=== PATIENT | male | born 1960 | race African-American/Black ===

== ENCOUNTER 2020-04-24 12:34 | Inpatient (IN) | payer MEDICAID, OTHER ==
[~2020-04-24] VITALS: Ht 182.9 cm; Wt 100.2 kg
[2020-04-24] MEDS ORDERED: QUET100T PO (14:59)
[2020-04-24] MEDS ORDERED: SERT50TA12 PO (14:59)
[2020-04-24] MEDS ORDERED: LORazepam 2 MG/ML VIAL ONE (15:12)
[2020-04-24] MEDS ORDERED: DiphenhydrAMINE HCL 50 MG/ML VIAL ONE (15:12)
[2020-04-24] MEDS ORDERED: HALOPERIDOL LACTATE 5 MG/ML VIAL ONE (15:13)
[2020-04-24] MEDS ORDERED: DiphenhydrAMINE HCL 50 MG/ML VIAL IM ONE (15:15)
[2020-04-24] MEDS ORDERED: HALOPERIDOL LACTATE 5 MG/ML VIAL IM ONE (15:15)
[2020-04-24] MEDS ORDERED: LORazepam 2 MG/ML VIAL IM ONE (15:15)
[2020-04-24] MEDS ORDERED: LORazepam 2 MG TABLET ONE (15:17)
[2020-04-24] MEDS ORDERED: DiphenhydrAMINE HCL 50 MG CAPSULE ONE (15:17)
[2020-04-24] MEDS ORDERED: HALOPERIDOL 5 MG TABLET ONE (15:17)
[2020-04-24] MEDS ORDERED: LORazepam 2 MG TABLET PO ONE (15:30)
[2020-04-24] MEDS ORDERED: DiphenhydrAMINE HCL 50 MG CAPSULE PO ONE (15:30)
[2020-04-24] MEDS ORDERED: HALOPERIDOL 5 MG TABLET PO ONE (15:30)
[2020-04-24 16:02] LABS: AMPHET/METH SCREEN,URINE POSITIVE (NEGATIVE); BARBITURATE SCREEN, URINE NEGATIVE (NEGATIVE); BENZODIAZEPINES SCREEN,URINE NEGATIVE (NEGATIVE); CANNABINOID SCREEN,URINE POSITIVE (NEGATIVE); COCAINE SCREEN,URINE NEGATIVE (NEGATIVE); METHADONE SCREEN, URINE NEGATIVE (NEGATIVE); OPIATE SCREEN,URINE NEGATIVE (NEGATIVE)
[2020-04-24 16:03] LABS: COVID AG,FIA SOURCE NASOPHARYNGEAL
[2020-04-24 16:12] LABS: PHENCYCLIDINE SCREEN,URINE NEGATIVE (NEGATIVE)
[2020-04-24] MEDS ORDERED: HALOPERIDOL 5 MG TABLET PO PRN (16:45)
[2020-04-24] MEDS ORDERED: ZOLPIDEM TARTRATE 10 MG TABLET PO PRN (16:45)
[2020-04-24 16:47] LABS: BASOPHILS % (AUTO) 0.7 % (0.0-2.0); EOSINOPHILS % (AUTO) 5.1 % (1.0-6.0); HEMATOCRIT 41.1 % (41-53); HEMOGLOBIN 13.9 g/dL (13.5-17.5); LYMPHOCYTES # (AUTO) 1.2 K/uL (1.0-4.8); MEAN CORPUSCULAR HEMOGLOBIN 29.4 pg (26.0-34.0); MEAN CORPUSCULAR HGB CONC 33.8 G/dL (31.0-37.0); MEAN CORPUSCULAR VOLUME 87 fL (80-100); MONOCYTES # (AUTO) 0.6 K/uL (0.1-1.0); MONOCYTES % (AUTO) 8.3 % (2.0-9.0); NEUTROPHILS # (AUTO) 4.7 K/uL (1.8-7.7); NEUTROPHILS % (AUTO) 67.9 % (40.0-70.0); PLATELET COUNT (AUTO) 228 K/uL (150-450); RED BLOOD CELL COUNT(AUTO) 4.72 MIL/uL (4.50-5.90); RED CELL DISTRIBUTION WIDTH 14.9 % (11.5-14.5)
[2020-04-24 17:04] LABS: ANION GAP 6 mmol/L (8-16); CALCIUM, TOTAL 8.5 mg/dL (8.8-10.5); CARBON DIOXIDE 28 mmol/L (22-29); CHLORIDE 108 mmol/L (98-107); CREATININE 1.22 mg/dL (0.60-1.30); GLOMERULAR FILTR. RATE CALC > 60 mL/min (>60); GLUCOSE,RANDOM 83 mg/dL (70-110); POTASSIUM 3.8 mmol/L (3.5-5.1); SODIUM SERUM 142 mmol/L (136-145); UREA NITROGEN, BLOOD 9 mg/dL (7-18)
[2020-04-24 17:05] LABS: ALANINE AMINOTRANSFERASE 23 U/L (12-78); ALBUMIN 3.7 g/dL (3.4-5.0); ALKALINE PHOSPHATASE 65 U/L (46-116); ASPARTATE AMINOTRANSFERASE 24 U/L (15-37); BILIRUBIN,TOTAL 0.5 mg/dL (0.1-1.0); TOTAL PROTEIN, SERUM 7.7 g/dL (6.4-8.2)
[2020-04-24] MEDS ORDERED: IBUPROFEN 400 MG TABLET PO PRN (17:15)
[2020-04-24] MEDS ORDERED: CloNIDine HCL 0.1 MG TABLET PO PRN (17:15)
[2020-04-24] MEDS ORDERED: DOCUSATE SODIUM 100 MG CAPSULE PO PRN (17:15)
[2020-04-24] MEDS ORDERED: LOPERAMIDE HCL 2 MG CAPSULE PO PRN (17:15)
[2020-04-24] MEDS ORDERED: NICOTINE 14 MG/24 HOUR PATCH TD PRN (17:15)
[2020-04-24] MEDS ORDERED: ALBUTEROL SULFATE HFA 90 MCG/PUFF 8 GM INHALER IH PRN (17:15)
[2020-04-24] MEDS ORDERED: GuaiFENesin/D-METHORPHAN [SUGAR-FREE] 200-20MG/10 ML SYRUP UDCUP PO PRN (17:15)
[2020-04-24] MEDS ORDERED: PETROLATUM,WHITE 28 GM JELLY TP PRN (17:15)
[2020-04-24] MEDS ORDERED: ACETAMINOPHEN 325 MG TABLET PO PRN (17:15)
[2020-04-24] MEDS ORDERED: MAG HYDROX/AL HYDROX/SIMETH ES 30 ML SUSPENSION UDCUP PO PRN (17:15)
[2020-04-24] MEDS ORDERED: MAGNESIUM HYDROXIDE SUSPENSION 30 ML UDCUP PO PRN (17:15)
[2020-04-24] MEDS ORDERED: ONDANSETRON HCL 4 MG TABLET PO PRN (17:15)
[2020-04-24 18:18] VITALS: BP 141/89
[2020-04-25 04:06] VITALS: BP 138/78
[2020-04-25 04:36] VITALS: BP 136/76
[2020-04-25] MEDS: LORazepam 2 MG TABLET PO PRN ×2 (08:00→19:35)
[2020-04-25] MEDS: TERBINAFINE HCL 1% 30 GM CREAM TP SCH ×2 (08:04→17:00)
[2020-04-25 09:03] VITALS: BP 113/66
[2020-04-25] MEDS ORDERED: IBUPROFEN 800 MG TABLET PO PRN (11:00)
[2020-04-25] MEDS: OLANZapine 5 MG TABLET PO SCH (17:00)
[2020-04-26 06:27] VITALS: BP 132/74
[2020-04-26 07:37] LABS: CHOL/HDL RATIO 3.5 (4.2-7.3)
[2020-04-26 08:08] VITALS: BP 107/68
[2020-04-26] MEDS: OLANZapine 5 MG TABLET PO SCH ×2 (08:27→16:10)
[2020-04-26] MEDS: TERBINAFINE HCL 1% 30 GM CREAM TP SCH ×2 (08:28→16:10)
[2020-04-26] MEDS: LORazepam 2 MG TABLET PO PRN (16:10)
[2020-04-26 16:36] VITALS: BP 124/80
[2020-04-27 04:40] VITALS: BP 119/76
[2020-04-27 08:07] VITALS: BP 133/79
[2020-04-27] MEDS: OLANZapine 5 MG TABLET PO SCH ×3 (08:35→16:31)
[2020-04-27] MEDS: LORazepam 2 MG TABLET PO PRN (08:35)
[2020-04-27] MEDS: TERBINAFINE HCL 1% 30 GM CREAM TP SCH ×2 (08:35→16:31)
[2020-04-27] MEDS ORDERED: HYDROCORTISONE 25 MG RECTAL SUPPOSITORY PR PRN (13:30)
== END 2020-04-27 16:50 | disposition left against medical advice (07) | DRG 750 ==
LOC: EMS 12:35 → B3A 15:53
PROVIDERS: ADMIT Psychiatry & Neurology Child & Adolescent Psychiatry; ATTEND Psychiatry & Neurology Child & Adolescent Psychiatry
DX: F25.1 Schizoaffective disorder, depressive type (principal); Z59.0 Homelessness; R45.851 Suicidal ideations; F41.9 Anxiety disorder, unspecified; F12.90 Cannabis use, unspecified, uncomplicated; F10.10 Alcohol abuse, uncomplicated; Y90.9 Presence of alcohol in blood, level not specified; F19.10 Other psychoactive substance abuse, uncomplicated; E83.51 Hypocalcemia; F17.210 Nicotine dependence, cigarettes, uncomplicated; F15.10 Other stimulant abuse, uncomplicated; Z20.828 Contact with and (suspected) exposure to other viral communicable diseases
CPT/HCPCS: 87426; 99291; G0480; J1200; J1630; J2060

== ENCOUNTER 2023-05-19 19:06 | Inpatient (IN) | payer MEDICAID ==
[~2023-05-19] VITALS: Ht 182.9 cm; Wt 92.2 kg
[~2023-05-19 19:06] MED LIST: QUET100T PO; SERT-158 PO
[2023-05-19] MEDS ORDERED: ZOLPIDEM TARTRATE 10 MG TABLET PO PRN (20:15)
[2023-05-19 20:31] LABS: GLUCOMETER DEV NAME(LOC) POC.BV; POC SARS-COV2 AG, FIA NEGATIVE (NEGATIVE)
[2023-05-19 21:35] VITALS: BP 136/84; PULSE 84; RESP 18; TEMP 97.3; O2SAT 97
[2023-05-20 08:29] LABS: BASOPHILS % (AUTO) 1.3 % (0.0-2.0); HEMATOCRIT 37.7 % (41-53); HEMOGLOBIN 12.7 g/dL (13.5-17.5); LYMPHOCYTES # (AUTO) 0.7 K/uL (1.0-4.8); LYMPHOCYTES % (AUTO) 15.9 % (22.0-44.0); MEAN CORPUSCULAR HEMOGLOBIN 29.2 pg (26.0-34.0); MEAN CORPUSCULAR HGB CONC 33.7 G/dL (31.0-37.0); MEAN CORPUSCULAR VOLUME 87 fL (80-100); MONOCYTES # (AUTO) 0.4 K/uL (0.1-1.0); MONOCYTES % (AUTO) 9.2 % (2.0-9.0); NEUTROPHILS # (AUTO) 2.9 K/uL (1.8-7.7); NEUTROPHILS % (AUTO) 64.6 % (40.0-70.0); PLATELET COUNT (AUTO) 187 K/uL (150-450); RED BLOOD CELL COUNT(AUTO) 4.35 MIL/uL (4.50-5.90); RED CELL DISTRIBUTION WIDTH 19.3 % (11.5-14.5); WHITE BLOOD COUNT (AUTO) 4.6 K/uL (4.5-11.0)
[2023-05-20 08:41] LABS: HEMOGLOBIN A1C 5.7 % (3.8-5.6)
[2023-05-20 08:57] LABS: ALANINE AMINOTRANSFERASE 18 U/L (12-78); ALBUMIN 3.5 g/dL (3.4-5.0); ALKALINE PHOSPHATASE 63 U/L (46-116); ANION GAP 9 mmol/L (8-16); ASPARTATE AMINOTRANSFERASE 19 U/L (15-37); BILIRUBIN,TOTAL 0.4 mg/dL (0.1-1.0); CALCIUM, TOTAL 8.8 mg/dL (8.8-10.5); CARBON DIOXIDE 26 mmol/L (22-29); CHLORIDE 110 mmol/L (98-107); CHOL/HDL RATIO 2.5 (4.2-7.3); CHOLESTEROL 158 mg/dL (131-200); FREE T4 (FREE THYROXINE) 0.95 ng/dL (0.76-1.46); GLOMERULAR FILTR. RATE CALC > 60 mL/min (>60); GLUCOSE,RANDOM 86 mg/dL (70-110); HDL CHOLESTEROL 63 mg/dL (40-60); LDL CHOL (CALC.) 83 mg/dL (0-130); POTASSIUM 4.3 mmol/L (3.5-5.1); SODIUM SERUM 145 mmol/L (136-145); THYROID STIMULATING HORMONE 1.22 uIU/mL (0.36-3.74); TOTAL PROTEIN, SERUM 7.3 g/dL (6.4-8.2); TRIGLYCERIDES 62 mg/dL (15-150); UREA NITROGEN, BLOOD 14 mg/dL (7-18)
[2023-05-20 09:21] LABS: RBC MORPHOLOGY COMMENT DIMORPHIC RBC
[2023-05-20] MEDS ORDERED: INFLUENZA VIRUS VACCINE QVS 2023-24 (6MO+)/PF 60 MCG/0.5 ML SYRINGE IM. ONE (14:15)
[2023-05-20 22:20] VITALS: BP 131/81; PULSE 82; RESP 18; TEMP 97.6; O2SAT 97
[2023-05-21] MEDS: LORazepam 2 MG TABLET PO PRN ×2 (00:33→19:50)
[2023-05-21] MEDS: HALOPERIDOL 5 MG TABLET PO PRN ×2 (00:33→19:50)
[2023-05-21 09:54] VITALS: BP 122/75; PULSE 87; RESP 18; TEMP 97; O2SAT 100
[2023-05-21] MEDS: SERTRALINE HCL 50 MG TABLET PO SCH (12:24)
[2023-05-21 20:45] VITALS: PULSE 77; RESP 18; TEMP 96.8; O2SAT 98
[2023-05-21] MEDS ORDERED: DOCUSATE SODIUM 100 MG CAPSULE PO PRN (21:30)
[2023-05-21] MEDS ORDERED: ALBUTEROL SULFATE HFA 90 MCG/PUFF 8 GM INHALER IH PRN (21:30)
[2023-05-21] MEDS ORDERED: CloNIDine HCL 0.1 MG TABLET PO PRN (21:30)
[2023-05-21] MEDS ORDERED: ONDANSETRON HCL 4 MG TABLET PO PRN (21:30)
[2023-05-21] MEDS ORDERED: MAG HYDROX/ALUMINUM HYD/SIMETH ES 30 ML SUSPENSION UDCUP PO PRN (21:30)
[2023-05-21] MEDS ORDERED: GuaiFENesin/D-METHORPHAN [SUGAR-FREE] 200-20MG/10 ML SYRUP UDCUP PO PRN (21:30)
[2023-05-21] MEDS ORDERED: MAGNESIUM HYDROXIDE SUSPENSION 30 ML UDCUP PO PRN (21:30)
[2023-05-21] MEDS ORDERED: PETROLATUM,WHITE 28 GM JELLY TP PRN (21:30)
[2023-05-21] MEDS ORDERED: NICOTINE 14 MG/24 HOUR PATCH TD PRN (21:30)
[2023-05-21] MEDS ORDERED: LOPERAMIDE HCL 2 MG CAPSULE PO PRN (21:30)
[2023-05-21] MEDS: QUEtiapine FUMARATE 100 MG TABLET PO SCH (21:31)
[2023-05-21] MEDS: ACETAMINOPHEN 325 MG TABLET PO PRN (22:06)
[2023-05-22 08:03] LABS: EOSINOPHILS % (AUTO) 9.2 % (1.0-6.0); HEMATOCRIT 36.4 % (41-53); HEMOGLOBIN 12.2 g/dL (13.5-17.5); LYMPHOCYTES % (AUTO) 21.8 % (22.0-44.0); MEAN CORPUSCULAR HEMOGLOBIN 29.3 pg (26.0-34.0); MEAN CORPUSCULAR HGB CONC 33.7 G/dL (31.0-37.0); MEAN CORPUSCULAR VOLUME 87 fL (80-100); MONOCYTES # (AUTO) 0.6 K/uL (0.1-1.0); NEUTROPHILS # (AUTO) 2.6 K/uL (1.8-7.7); PLATELET COUNT (AUTO) 178 K/uL (150-450); RED BLOOD CELL COUNT(AUTO) 4.18 MIL/uL (4.50-5.90); RED CELL DISTRIBUTION WIDTH 20.7 % (11.5-14.5); WHITE BLOOD COUNT (AUTO) 4.6 K/uL (4.5-11.0)
[2023-05-22 08:22] LABS: ALANINE AMINOTRANSFERASE 19 U/L (12-78); ALBUMIN 3.3 g/dL (3.4-5.0); ALKALINE PHOSPHATASE 61 U/L (46-116); ANION GAP 9 mmol/L (8-16); ASPARTATE AMINOTRANSFERASE 23 U/L (15-37); BILIRUBIN,TOTAL 0.4 mg/dL (0.1-1.0); CALCIUM, TOTAL 8.7 mg/dL (8.8-10.5); CARBON DIOXIDE 26 mmol/L (22-29); CHLORIDE 110 mmol/L (98-107); CREATININE 1.02 mg/dL (0.60-1.30); GLOMERULAR FILTR. RATE CALC > 60 mL/min (>60); GLUCOSE,RANDOM 89 mg/dL (70-110); POTASSIUM 4.2 mmol/L (3.5-5.1); SODIUM SERUM 145 mmol/L (136-145); THYROID STIMULATING HORMONE 1.76 uIU/mL (0.36-3.74); UREA NITROGEN, BLOOD 16 mg/dL (7-18)
[2023-05-22 08:26] LABS: HEMOGLOBIN A1C 5.7 % (3.8-5.6)
[2023-05-22 09:13] LABS: CHOL/HDL RATIO 2.6 (4.2-7.3); CHOLESTEROL 171 mg/dL (131-200); HDL CHOLESTEROL 65 mg/dL (40-60); LDL CHOL (CALC.) 93 mg/dL (0-130); TRIGLYCERIDES 65 mg/dL (15-150)
[2023-05-22] MEDS: SERTRALINE HCL 50 MG TABLET PO SCH (09:14)
[2023-05-22] MEDS: HALOPERIDOL 5 MG TABLET PO PRN (13:44)
[2023-05-22] MEDS: LORazepam 2 MG TABLET PO PRN (13:44)
[2023-05-22 13:51] VITALS: BP 138/82; PULSE 85; RESP 18; TEMP 97.2; O2SAT 99
[2023-05-22] MEDS: CLOTRIMAZOLE 1% 15 GM CREAM TP SCH (16:06)
[2023-05-22 17:07] VITALS: BP 137/76; PULSE 78; RESP 18; TEMP 98.7
[2023-05-22] MEDS: IBUPROFEN 400 MG TABLET PO PRN (17:07)
[2023-05-22 18:29] VITALS: BP 132/75; PULSE 76; RESP 18; TEMP 97.6; O2SAT 0
[2023-05-22 20:50] VITALS: BP 124/81; PULSE 74; RESP 18; TEMP 97.6; O2SAT 98
[2023-05-22] MEDS: QUEtiapine FUMARATE 100 MG TABLET PO SCH (20:56)
[2023-05-22] MEDS: ACETAMINOPHEN 325 MG TABLET PO PRN (20:56)
[2023-05-22 21:50] VITALS: RESP 18
[2023-05-22 21:55] VITALS: BP 124/81; PULSE 77; RESP 18; TEMP 97.6; O2SAT 98
[2023-05-23] MEDS: SERTRALINE HCL 50 MG TABLET PO SCH (08:24)
[2023-05-23 08:25] VITALS: RESP 18
[2023-05-23] MEDS: CLOTRIMAZOLE 1% 15 GM CREAM TP SCH ×2 (08:25→16:24)
[2023-05-23] MEDS: NYSTATIN 15 GM POWDER BOTTLE TP SCH (08:26)
[2023-05-23] MEDS: IBUPROFEN 400 MG TABLET PO PRN (08:27)
[2023-05-23] MEDS ORDERED: BACITRACIN 28 GM OINTMENT TP SCH (09:00)
[2023-05-23 09:27] VITALS: RESP 16
[2023-05-23 10:42] VITALS: BP 129/76; PULSE 84; RESP 18; TEMP 97.1; O2SAT 99
[2023-05-23] MEDS: QUEtiapine FUMARATE 100 MG TABLET PO SCH ×2 (20:54→21:00)
[2023-05-23 21:32] VITALS: BP 139/83; PULSE 68; RESP 18; TEMP 97.4; O2SAT 97
[2023-05-24] MEDS: CLOTRIMAZOLE 1% 15 GM CREAM TP SCH (09:38)
[2023-05-24] MEDS: SERTRALINE HCL 50 MG TABLET PO SCH (09:38)
[2023-05-24] MEDS: NYSTATIN 15 GM POWDER BOTTLE TP SCH (09:39)
[2023-05-24 10:55] VITALS: BP 142/79; PULSE 82; RESP 18; TEMP 97.3; O2SAT 100
[2023-05-24] MEDS ORDERED: NYST30CR9 TP (12:22)
[2023-05-24] MEDS ORDERED: CLOT15CR29 TP (12:22)
[2023-05-24] MEDS ORDERED: QUET50TA PO (13:40)
[2023-05-24] MEDS ORDERED: SERT-158 PO (13:40)
[2023-05-25] MEDS ORDERED: CAPECITABINE 500MG TABLET PO SCH (09:00)
== END 2023-05-24 16:42 | disposition home or self-care (01) | DRG 750 ==
LOC: B2S 20:22 → UNDOADMIN 20:22 → 3EI 05-20 11:00
PROVIDERS: ADMIT Psychiatry & Neurology Psychiatry; ATTEND Psychiatry & Neurology Psychiatry
PROC: GZHZZZZ Group Psychotherapy (ICD-10-PCS; principal; 2023-05-21)
PROC: GZ56ZZZ Individual Psychotherapy, Supportive (ICD-10-PCS; 2023-05-21)
DX: F25.1 Schizoaffective disorder, depressive type (principal); R45.851 Suicidal ideations; C18.9 Malignant neoplasm of colon, unspecified; F03.918 Unspecified dementia, unspecified severity, with other behavioral disturbance; G47.00 Insomnia, unspecified; D64.9 Anemia, unspecified; Z20.822 Contact with and (suspected) exposure to COVID-19; Z79.899 Other long term (current) drug therapy; Z85.038 Personal history of other malignant neoplasm of large intestine; Z91.51 Personal history of suicidal behavior; Z93.3 Colostomy status
CPT/HCPCS: 70450; 80053; 80061; 83036; 84439; 84443; 85025

== ENCOUNTER 2023-05-19 22:41 | Emergency (ER) | payer MEDICAID, OTHER ==
[~2023-05-19] VITALS: Ht 182.9 cm; Wt 90.9 kg
[2023-05-19 23:35] VITALS: BP 163/87; PULSE 70; RESP 15; TEMP 97.6
[2023-05-19 23:59] LABS: PH,URINE DRUG SCREEN 5.5 (5.0-8.0)
[2023-05-20] LABS: BASOPHILS % (AUTO) 1.1 % (0.0-2.0); EOSINOPHILS % (AUTO) 7.1 % (1.0-6.0); HEMATOCRIT 36.5 % (41-53); HEMOGLOBIN 12.3 g/dL (13.5-17.5); LYMPHOCYTES # (AUTO) 1.2 K/uL (1.0-4.8); LYMPHOCYTES % (AUTO) 22.4 % (22.0-44.0); MEAN CORPUSCULAR HEMOGLOBIN 29.2 pg (26.0-34.0); MEAN CORPUSCULAR HGB CONC 33.7 G/dL (31.0-37.0); MEAN CORPUSCULAR VOLUME 87 fL (80-100); MONOCYTES # (AUTO) 0.6 K/uL (0.1-1.0); MONOCYTES % (AUTO) 11.1 % (2.0-9.0); NEUTROPHILS # (AUTO) 3.1 K/uL (1.8-7.7); NEUTROPHILS % (AUTO) 58.3 % (40.0-70.0); PLATELET COUNT (AUTO) 197 K/uL (150-450); RED BLOOD CELL COUNT(AUTO) 4.21 MIL/uL (4.50-5.90); RED CELL DISTRIBUTION WIDTH 18.7 % (11.5-14.5); WHITE BLOOD COUNT (AUTO) 5.3 K/uL (4.5-11.0)
[2023-05-20 00:01] LABS: ALCOHOL, URINE DRUG SCREEN NEGATIVE (NEGATIVE); AMPHET/METH SCREEN,URINE NEGATIVE (NEGATIVE); BARBITURATE SCREEN, URINE NEGATIVE (NEGATIVE); BENZODIAZEPINES SCREEN,URINE NEGATIVE (NEGATIVE); CANNABINOID SCREEN,URINE POSITIVE (NEGATIVE); COCAINE SCREEN,URINE NEGATIVE (NEGATIVE); METHADONE SCREEN, URINE NEGATIVE (NEGATIVE); OPIATE SCREEN,URINE NEGATIVE (NEGATIVE); PHENCYCLIDINE SCREEN,URINE NEGATIVE (NEGATIVE)
[2023-05-20 00:10] LABS: CARBON DIOXIDE 27 mmol/L (22-29); CHLORIDE 109 mmol/L (98-107); SODIUM SERUM 146 mmol/L (136-145)
[2023-05-20 00:11] LABS: ANION GAP 10 mmol/L (8-16); CALCIUM, TOTAL 8.9 mg/dL (8.8-10.5); CREATININE 0.97 mg/dL (0.60-1.30); GLOMERULAR FILTR. RATE CALC > 60 mL/min (>60); GLUCOSE,RANDOM 102 mg/dL (70-110); UREA NITROGEN, BLOOD 16 mg/dL (7-18)
[2023-05-20 00:14] LABS: ALANINE AMINOTRANSFERASE 21 U/L (12-78); ALBUMIN 3.6 g/dL (3.4-5.0); ALKALINE PHOSPHATASE 62 U/L (46-116); ASPARTATE AMINOTRANSFERASE 21 U/L (15-37); BILIRUBIN,TOTAL 0.4 mg/dL (0.1-1.0); TOTAL PROTEIN, SERUM 7.4 g/dL (6.4-8.2)
[2023-05-20 00:20] LABS: ALCOHOL, BLOOD (SERUM) < 3 mg/dL (0-10)
[2023-05-20] MEDS ORDERED: LORazepam 2 MG TABLET PO ONE (04:30)
[2023-05-20] MEDS ORDERED: HALOPERIDOL 5 MG TABLET PO ONE (04:30)
[2023-05-20] MEDS: DiphenhydrAMINE HCL 50 MG/ML VIAL IM ONE (05:25)
[2023-05-20] MEDS: LORazepam 2 MG/ML VIAL IM ONE (05:25)
[2023-05-20] MEDS: HALOPERIDOL LACTATE 5 MG/ML VIAL IM ONE (05:25)
== END 2023-05-20 11:04 | disposition admitted as inpatient to this hospital (09) ==
LOC: EMS 22:53
DX: F25.1 Schizoaffective disorder, depressive type (principal); F12.90 Cannabis use, unspecified, uncomplicated
CPT/HCPCS: 99285; 80053; 85025; 36415; 80307; G0480

== ENCOUNTER 2023-07-08 12:47 | Inpatient (IN) | payer MEDICAID, OTHER ==
[~2023-07-08] VITALS: Ht 182.9 cm; Wt 98.1 kg
[~2023-07-08 12:47] MED LIST changes: +CLOT15CR29 TP; +NYST30CR9 TP; +QUET50TA PO
[2023-07-08 13:28] LABS: BASOPHILS % (AUTO) 0.7 % (0.0-2.0); EOSINOPHILS % (AUTO) 2.5 % (1.0-6.0); HEMATOCRIT 39.6 % (41-53); HEMOGLOBIN 13.6 g/dL (13.5-17.5); LYMPHOCYTES # (AUTO) 0.7 K/uL (1.0-4.8); LYMPHOCYTES % (AUTO) 8.8 % (22.0-44.0); MEAN CORPUSCULAR HEMOGLOBIN 31.1 pg (26.0-34.0); MEAN CORPUSCULAR HGB CONC 34.2 G/dL (31.0-37.0); MEAN CORPUSCULAR VOLUME 91 fL (80-100); MONOCYTES # (AUTO) 0.7 K/uL (0.1-1.0); MONOCYTES % (AUTO) 8.2 % (2.0-9.0); NEUTROPHILS # (AUTO) 6.7 K/uL (1.8-7.7); NEUTROPHILS % (AUTO) 79.8 % (40.0-70.0); PLATELET COUNT (AUTO) 236 K/uL (150-450); RED BLOOD CELL COUNT(AUTO) 4.36 MIL/uL (4.50-5.90); RED CELL DISTRIBUTION WIDTH 19.8 % (11.5-14.5); WHITE BLOOD COUNT (AUTO) 8.4 K/uL (4.5-11.0)
[2023-07-08 13:41] LABS: ANION GAP 12 mmol/L (8-16); CALCIUM, TOTAL 9.5 mg/dL (8.8-10.5); CARBON DIOXIDE 25 mmol/L (22-29); CHLORIDE 105 mmol/L (98-107); CREATININE 1.04 mg/dL (0.60-1.30); GLOMERULAR FILTR. RATE CALC > 60 mL/min (>60); GLUCOSE,RANDOM 92 mg/dL (70-110); SODIUM SERUM 142 mmol/L (136-145); UREA NITROGEN, BLOOD 21 mg/dL (7-18)
[2023-07-08 13:45] LABS: ALCOHOL, BLOOD (SERUM) < 3 mg/dL (0-10)
[2023-07-08 13:46] LABS: ALANINE AMINOTRANSFERASE 35 U/L (12-78); ALBUMIN 4.2 g/dL (3.4-5.0); ALKALINE PHOSPHATASE 72 U/L (46-116); ASPARTATE AMINOTRANSFERASE 34 U/L (15-37); BILIRUBIN,TOTAL 0.7 mg/dL (0.1-1.0); TOTAL PROTEIN, SERUM 8.1 g/dL (6.4-8.2)
[2023-07-08 14:06] LABS: COVID AG,FIA SOURCE NASAL SWAB
[2023-07-08 14:32] LABS: SARS-COV2 (COVID) ANTIGEN,FIA Negative (Negative)
[2023-07-08] MEDS: QUEtiapine FUMARATE 100 MG TABLET PO ONE (17:32)
[2023-07-08] MEDS: DiphenhydrAMINE HCL 25 MG CAPSULE PO ONE (17:33)
[2023-07-08] MEDS: LORazepam 2 MG TABLET PO ONE (17:33)
[2023-07-08] MEDS: TERBINAFINE HCL 1% 30 GM CREAM TP ONE (17:34)
[2023-07-08 18:47] VITALS: BP 157/98; PULSE 80; RESP 18; TEMP 97.7
[2023-07-08] MEDS ORDERED: PNEUMOCOCCAL VACCINE POLYVALENT 0.5 ML SYRINGE [PPSV23] IM. ONE (19:00)
[2023-07-08] MEDS ORDERED: INFLUENZA VIRUS VACCINE QVS 2023-24 (6MO+)/PF 60 MCG/0.5 ML SYRINGE IM. ONE (19:00)
[2023-07-08] MEDS: LORazepam 2 MG TABLET PO PRN (20:17)
[2023-07-08] MEDS: ZOLPIDEM TARTRATE 10 MG TABLET PO PRN (20:50)
[2023-07-09] MEDS ORDERED: CloNIDine HCL 0.1 MG TABLET PO PRN (05:00)
[2023-07-09] MEDS ORDERED: MAG HYDROX/ALUMINUM HYD/SIMETH ES 30 ML SUSPENSION UDCUP PO PRN (05:00)
[2023-07-09] MEDS ORDERED: DOCUSATE SODIUM 100 MG CAPSULE PO PRN (05:00)
[2023-07-09] MEDS ORDERED: OMEPRAZOLE 20 MG CAPSULE PO PRN (05:00)
[2023-07-09] MEDS ORDERED: ONDANSETRON HCL 4 MG TABLET PO PRN (05:00)
[2023-07-09] MEDS ORDERED: MAGNESIUM HYDROXIDE SUSPENSION 30 ML UDCUP PO PRN (05:00)
[2023-07-09] MEDS ORDERED: BENZOCAINE/MENTHOL LOZENGE PO PRN (05:00)
[2023-07-09] MEDS ORDERED: BACITRACIN 28 GM OINTMENT TP PRN (05:00)
[2023-07-09] MEDS ORDERED: PETROLATUM,WHITE 28 GM JELLY TP PRN (05:00)
[2023-07-09] MEDS ORDERED: LOPERAMIDE HCL 2 MG CAPSULE PO PRN (05:00)
[2023-07-09] MEDS ORDERED: ALBUTEROL SULFATE HFA 90 MCG/PUFF 8 GM INHALER IH PRN (05:00)
[2023-07-09] MEDS ORDERED: PANT-31 PO (08:13)
[2023-07-09] MEDS ORDERED: AMLO-258 PO (08:13)
[2023-07-09 08:20] VITALS: BP 134/80; PULSE 93; RESP 17; TEMP 98
[2023-07-09] MEDS ORDERED: RISP2TAB86 PO (09:00)
[2023-07-09] MEDS ORDERED: RISP4TAB73 PO (09:00)
[2023-07-09] MEDS: AmLODIPine BESYLATE 10 MG TABLET PO SCH (09:17)
[2023-07-09] MEDS: PANTOPRAZOLE SODIUM 40 MG DR TABLET PO SCH (09:17)
[2023-07-09] MEDS: HALOPERIDOL 5 MG TABLET PO PRN (20:15)
[2023-07-09 21:23] VITALS: BP 122/66; PULSE 74; RESP 18; TEMP 98.4
[2023-07-10 07:40] LABS: LITHIUM < 0.20 mmol/L (0.60-1.20)
[2023-07-10 07:41] LABS: VALPROIC ACID < 3 mcg/mL (50-100)
[2023-07-10 08:46] VITALS: BP 148/88; PULSE 76; RESP 17; TEMP 97.1
[2023-07-10] MEDS: LITHIUM CARBONATE 300 MG ER TABLET PO SCH (09:21)
[2023-07-10] MEDS: DIVALPROEX SODIUM 500 MG ER TABLET PO SCH (09:21)
[2023-07-10] MEDS: RisperiDONE 3 MG TABLET PO SCH (09:21)
[2023-07-10 10:16] LABS: PH,URINE DRUG SCREEN 5.5 (5.0-8.0)
[2023-07-10 10:22] LABS: ALCOHOL, URINE DRUG SCREEN NEGATIVE (NEGATIVE); AMPHET/METH SCREEN,URINE NEGATIVE (NEGATIVE); BARBITURATE SCREEN, URINE NEGATIVE (NEGATIVE); BENZODIAZEPINES SCREEN,URINE NEGATIVE (NEGATIVE); CANNABINOID SCREEN,URINE POSITIVE (NEGATIVE); COCAINE SCREEN,URINE NEGATIVE (NEGATIVE); METHADONE SCREEN, URINE NEGATIVE (NEGATIVE); OPIATE SCREEN,URINE NEGATIVE (NEGATIVE); PHENCYCLIDINE SCREEN,URINE NEGATIVE (NEGATIVE)
[2023-07-10] MEDS ORDERED: LORazepam 2 MG/ML VIAL ONE (20:29)
[2023-07-10] MEDS: DiphenhydrAMINE HCL 50 MG/ML VIAL IM ONE (20:40)
[2023-07-10] MEDS: LORazepam 2 MG/ML VIAL IM ONE (20:40)
[2023-07-10] MEDS: HALOPERIDOL LACTATE 5 MG/ML VIAL IM ONE (20:45)
[2023-07-10 21:04] VITALS: RESP 18
[2023-07-11] MEDS: RisperiDONE 4 MG TABLET PO SCH (16:05)
[2023-07-12 20:29] VITALS: BP 120/71; PULSE 93; RESP 18; TEMP 98.8
[2023-07-12] MEDS: IBUPROFEN 600 MG TABLET PO PRN (20:32)
[2023-07-12 21:32] VITALS: RESP 18
[2023-07-13 08:31] VITALS: BP 140/93; PULSE 86; RESP 18; TEMP 97.5
[2023-07-13] MEDS: ACETAMINOPHEN 325 MG TABLET PO PRN (15:31)
[2023-07-13] MEDS ORDERED: LITH300C3 PO (16:56)
[2023-07-13] MEDS ORDERED: RISP4TAB73 PO (16:56)
[2023-07-13] MEDS ORDERED: DIVA500T53 PO (16:56)
[2023-07-13 20:05] VITALS: BP 144/84; PULSE 85; RESP 18; TEMP 97.8
[2023-07-13 20:24] VITALS: BP 138/87; PULSE 84; RESP 18; TEMP 98
[2023-07-13 21:27] VITALS: RESP 18
[2023-07-14 03:29] VITALS: BP 142/87; PULSE 88; RESP 18; TEMP 98.4
[2023-07-14 04:32] VITALS: RESP 18
[2023-07-14 08:27] VITALS: BP 154/97; PULSE 92; RESP 18; TEMP 98.1
[2023-07-14 20:48] VITALS: RESP 18
[2023-07-15 08:45] VITALS: BP 109/66; PULSE 62; RESP 18; TEMP 98.1
[2023-07-15 19:55] VITALS: BP 142/85; PULSE 83; RESP 18; TEMP 97.9
[2023-07-15 20:55] VITALS: RESP 16
[2023-07-16 06:19] VITALS: RESP 18
[2023-07-16 07:19] VITALS: RESP 18
[2023-07-16 08:15] VITALS: RESP 18
== END 2023-07-16 08:25 | disposition home or self-care (01) | DRG 750 ==
LOC: EMS 12:47 → 3EC 17:18
PROVIDERS: ADMIT Psychiatry & Neurology Psychiatry; ATTEND Psychiatry & Neurology Psychiatry
DX: F25.1 Schizoaffective disorder, depressive type (principal); R45.851 Suicidal ideations; F03.918 Unspecified dementia, unspecified severity, with other behavioral disturbance; I10 Essential (primary) hypertension; G47.00 Insomnia, unspecified; Z20.822 Contact with and (suspected) exposure to COVID-19; K59.00 Constipation, unspecified; F03.94 Unspecified dementia, unspecified severity, with anxiety; F12.90 Cannabis use, unspecified, uncomplicated; F10.90 Alcohol use, unspecified, uncomplicated; Z93.3 Colostomy status; Z79.899 Other long term (current) drug therapy; Z85.038 Personal history of other malignant neoplasm of large intestine; Z90.49 Acquired absence of other specified parts of digestive tract
CPT/HCPCS: 80053; 80164; 80178; 80307; 85025; 99285; G0480; J1200; J1630; J2060

== ENCOUNTER 2023-10-01 11:35 | Inpatient (IN) | payer MEDICAID, OTHER ==
[~2023-10-01] VITALS: Ht 182.9 cm; Wt 94.6 kg
[~2023-10-01 11:35] MED LIST changes: +AMLO-258 PO; -CLOT15CR29 TP; +DIVA500T53 PO; +LITH300C3 PO; -NYST30CR9 TP; +PANT-31 PO; -QUET100T PO; -QUET50TA PO; +RISP4TAB94 PO; -SERT-158 PO
[2023-10-01 15:27] LABS: BASOPHILS % (AUTO) 1.1 % (0.0-2.0); EOSINOPHILS % (AUTO) 2.2 % (1.0-6.0); HEMATOCRIT 38.3 % (41-53); HEMOGLOBIN 12.8 g/dL (13.5-17.5); LYMPHOCYTES # (AUTO) 1.1 K/uL (1.0-4.8); MEAN CORPUSCULAR HEMOGLOBIN 31.2 pg (26.0-34.0); MEAN CORPUSCULAR HGB CONC 33.4 G/dL (31.0-37.0); MEAN CORPUSCULAR VOLUME 94 fL (80-100); MONOCYTES # (AUTO) 0.6 K/uL (0.1-1.0); MONOCYTES % (AUTO) 6.9 % (2.0-9.0); NEUTROPHILS # (AUTO) 7.3 K/uL (1.8-7.7); NEUTROPHILS % (AUTO) 77.8 % (40.0-70.0); PLATELET COUNT (AUTO) 349 K/uL (150-450); RED CELL DISTRIBUTION WIDTH 16.3 % (11.5-14.5); WHITE BLOOD COUNT (AUTO) 9.5 K/uL (4.5-11.0)
[2023-10-01 15:33] LABS: ANION GAP 13 mmol/L (8-16); CALCIUM, TOTAL 8.7 mg/dL (8.8-10.5); CARBON DIOXIDE 23 mmol/L (22-29); CHLORIDE 102 mmol/L (98-107); CREATININE 1.13 mg/dL (0.60-1.30); GLOMERULAR FILTR. RATE CALC > 60 mL/min (>60); GLUCOSE,RANDOM 89 mg/dL (70-110); POTASSIUM 3.5 mmol/L (3.5-5.1); SODIUM SERUM 138 mmol/L (136-145); UREA NITROGEN, BLOOD 11 mg/dL (7-18)
[2023-10-01 15:38] LABS: ALANINE AMINOTRANSFERASE 40 U/L (12-78); ALBUMIN 3.8 g/dL (3.4-5.0); ALKALINE PHOSPHATASE 69 U/L (46-116); ASPARTATE AMINOTRANSFERASE 48 U/L (15-37); BILIRUBIN,TOTAL 0.8 mg/dL (0.1-1.0); TOTAL PROTEIN, SERUM 8.4 g/dL (6.4-8.2)
[2023-10-01 15:47] LABS: LITHIUM < 0.20 mmol/L (0.60-1.20)
[2023-10-01 16:06] LABS: VALPROIC ACID < 3 mcg/mL (50-100)
[2023-10-01 16:12] LABS: ALCOHOL, BLOOD (SERUM) < 3 mg/dL (0-10)
[2023-10-01 16:18] LABS: COVID AG,FIA SOURCE NASAL SWAB
[2023-10-01 16:53] LABS: SARS-COV2 (COVID) ANTIGEN,FIA Negative (Negative)
[2023-10-01] MEDS ORDERED: ZOLPIDEM TARTRATE 10 MG TABLET PO PRN (20:00)
[2023-10-01] MEDS: LORazepam 2 MG TABLET PO PRN (21:49)
[2023-10-01] MEDS: HALOPERIDOL 5 MG TABLET PO PRN (21:50)
[2023-10-02 02:42] VITALS: BP 128/55; PULSE 67; RESP 18; TEMP 98.3
[2023-10-02] MEDS ORDERED: MAG HYDROX/ALUMINUM HYD/SIMETH ES 30 ML SUSPENSION UDCUP PO PRN ×2 (07:15→15:15)
[2023-10-02] MEDS ORDERED: DOCUSATE SODIUM 100 MG CAPSULE PO PRN ×2 (07:15→15:15)
[2023-10-02] MEDS ORDERED: GuaiFENesin/D-METHORPHAN [SUGAR-FREE] 200-20MG/10 ML SYRUP UDCUP PO PRN ×2 (07:15→15:15)
[2023-10-02] MEDS ORDERED: ALBUTEROL SULFATE HFA 90 MCG/PUFF 8 GM INHALER IH PRN ×2 (07:15→15:15)
[2023-10-02] MEDS ORDERED: ONDANSETRON HCL 4 MG TABLET PO PRN ×2 (07:15→15:15)
[2023-10-02] MEDS ORDERED: IBUPROFEN 400 MG TABLET PO PRN (07:15)
[2023-10-02] MEDS ORDERED: ACETAMINOPHEN 325 MG TABLET PO PRN ×2 (07:15→15:15)
[2023-10-02] MEDS ORDERED: CloNIDine HCL 0.1 MG TABLET PO PRN ×2 (07:15→15:15)
[2023-10-02] MEDS ORDERED: NICOTINE 14 MG/24 HOUR PATCH TD PRN ×2 (07:15→15:15)
[2023-10-02] MEDS ORDERED: MAGNESIUM HYDROXIDE SUSPENSION 30 ML UDCUP PO PRN ×2 (07:15→15:15)
[2023-10-02] MEDS ORDERED: LOPERAMIDE HCL 2 MG CAPSULE PO PRN ×2 (07:15→15:15)
[2023-10-02] MEDS ORDERED: PETROLATUM,WHITE 28 GM JELLY TP PRN ×2 (07:15→15:15)
[2023-10-02 11:01] VITALS: BP 138/94; PULSE 82; RESP 20; TEMP 98
[2023-10-02] MEDS: LITHIUM CARBONATE 300 MG CAPSULE PO SCH (11:03)
[2023-10-02] MEDS: PANTOPRAZOLE SODIUM 40 MG DR TABLET PO SCH (11:03)
[2023-10-02] MEDS: RisperiDONE 3 MG TABLET PO SCH (11:03)
[2023-10-02] MEDS: AmLODIPine BESYLATE 10 MG TABLET PO SCH (11:04)
[2023-10-02 21:16] VITALS: BP 134/77; PULSE 66; RESP 18; TEMP 98.8
[2023-10-03 05:38] VITALS: RESP 18
[2023-10-03] MEDS: IBUPROFEN 400 MG TABLET PO PRN (05:38)
[2023-10-03 06:38] VITALS: RESP 18
[2023-10-03 08:30] VITALS: BP 139/72; PULSE 74; RESP 18; TEMP 98.3
[2023-10-03 09:03] LABS: HEMOGLOBIN A1C 5.4 % (3.8-5.6)
[2023-10-03 09:16] LABS: THYROID STIMULATING HORMONE 1.04 uIU/mL (0.36-3.74)
[2023-10-03 09:35] LABS: CHOL/HDL RATIO 3.1 (4.2-7.3)
[2023-10-03] MEDS: AmLODIPine BESYLATE 10 MG TABLET PO SCH (11:03)
[2023-10-03 22:00] VITALS: RESP 18
[2023-10-04 10:19] VITALS: BP 132/91; PULSE 81; RESP 18; TEMP 97.2
[2023-10-04 21:51] VITALS: RESP 17
[2023-10-05 13:08] VITALS: BP 129/78; PULSE 98; RESP 19; TEMP 97
== END 2023-10-05 15:18 | disposition home or self-care (01) | DRG 750 ==
LOC: EMS 11:36 → 3EI 21:38
PROVIDERS: ADMIT Psychiatry & Neurology Psychiatry; ATTEND Psychiatry & Neurology Psychiatry
PROC: GZ52ZZZ Individual Psychotherapy, Cognitive (ICD-10-PCS; principal; 2023-10-02)
DX: F25.1 Schizoaffective disorder, depressive type (principal); R45.851 Suicidal ideations; E11.9 Type 2 diabetes mellitus without complications; E78.5 Hyperlipidemia, unspecified; D64.9 Anemia, unspecified; F12.90 Cannabis use, unspecified, uncomplicated; I10 Essential (primary) hypertension; K21.9 Gastro-esophageal reflux disease without esophagitis; Z20.822 Contact with and (suspected) exposure to COVID-19; K86.1 Other chronic pancreatitis; I48.0 Paroxysmal atrial fibrillation; K59.00 Constipation, unspecified; Z85.038 Personal history of other malignant neoplasm of large intestine; Z93.3 Colostomy status; Z79.899 Other long term (current) drug therapy; Z90.49 Acquired absence of other specified parts of digestive tract
CPT/HCPCS: 80053; 80061; 80164; 80178; 83036; 84443; 85025; 87081; 99285; G0480

== ENCOUNTER 2023-10-29 15:37 | Inpatient (IN) | payer MEDICAID, OTHER ==
[~2023-10-29] VITALS: Ht 182.9 cm; Wt 93.0 kg
[~2023-10-29 15:37] MED LIST changes: -DIVA500T53 PO
[2023-10-29] MEDS: LORazepam 2 MG/ML VIAL IM ONE (20:11)
[2023-10-29] MEDS: HALOPERIDOL LACTATE 5 MG/ML VIAL IM ONE (20:11)
[2023-10-29] MEDS: DiphenhydrAMINE HCL 50 MG/ML VIAL IM ONE (20:11)
[2023-10-29] MEDS ORDERED: RISP3TAB77 PO (20:13)
[2023-10-29 20:21] LABS: COVID AG,FIA SOURCE NASAL SWAB
[2023-10-29 20:49] LABS: SARS-COV2 (COVID) ANTIGEN,FIA Negative (Negative)
[2023-10-29] MEDS ORDERED: ZOLPIDEM TARTRATE 10 MG TABLET PO PRN (22:00)
[2023-10-30 07:57] LABS: BASOPHILS % (AUTO) 0.5 % (0.0-2.0); EOSINOPHILS % (AUTO) 8.6 % (1.0-6.0); HEMATOCRIT 38.8 % (41-53); HEMOGLOBIN 13.1 g/dL (13.5-17.5); LYMPHOCYTES # (AUTO) 0.7 K/uL (1.0-4.8); LYMPHOCYTES % (AUTO) 15.3 % (22.0-44.0); MEAN CORPUSCULAR HEMOGLOBIN 31.1 pg (26.0-34.0); MEAN CORPUSCULAR HGB CONC 33.8 G/dL (31.0-37.0); MEAN CORPUSCULAR VOLUME 92 fL (80-100); MONOCYTES # (AUTO) 0.5 K/uL (0.1-1.0); MONOCYTES % (AUTO) 11.4 % (2.0-9.0); NEUTROPHILS % (AUTO) 64.2 % (40.0-70.0); PLATELET COUNT (AUTO) 236 K/uL (150-450); RED BLOOD CELL COUNT(AUTO) 4.21 MIL/uL (4.50-5.90); RED CELL DISTRIBUTION WIDTH 15.8 % (11.5-14.5); WHITE BLOOD COUNT (AUTO) 4.7 K/uL (4.5-11.0)
[2023-10-30] MEDS: HALOPERIDOL 5 MG TABLET PO PRN (08:08)
[2023-10-30] MEDS: LORazepam 2 MG TABLET PO PRN (08:08)
[2023-10-30 08:11] LABS: ANION GAP 9 mmol/L (8-16); CARBON DIOXIDE 24 mmol/L (22-29); CHLORIDE 105 mmol/L (98-107); CREATININE 0.92 mg/dL (0.60-1.30); GLOMERULAR FILTR. RATE CALC > 60 mL/min (>60); GLUCOSE,RANDOM 100 mg/dL (70-110); POTASSIUM 3.5 mmol/L (3.5-5.1); SODIUM SERUM 138 mmol/L (136-145); UREA NITROGEN, BLOOD 13 mg/dL (7-18)
[2023-10-30 08:13] LABS: ALCOHOL, BLOOD (SERUM) < 3 mg/dL (0-10)
[2023-10-30 11:33] VITALS: BP 104/54; PULSE 60; RESP 18; TEMP 97; O2SAT 98
[2023-10-30] MEDS ORDERED: NICOTINE 14 MG/24 HOUR PATCH TD PRN (14:30)
[2023-10-30] MEDS ORDERED: ACETAMINOPHEN 325 MG TABLET PO PRN (14:30)
[2023-10-30] MEDS ORDERED: LOPERAMIDE HCL 2 MG CAPSULE PO PRN (14:30)
[2023-10-30] MEDS ORDERED: DOCUSATE SODIUM 100 MG CAPSULE PO PRN (14:30)
[2023-10-30] MEDS ORDERED: CloNIDine HCL 0.1 MG TABLET PO PRN (14:30)
[2023-10-30] MEDS ORDERED: PETROLATUM,WHITE 28 GM JELLY TP PRN (14:30)
[2023-10-30] MEDS ORDERED: MAGNESIUM HYDROXIDE SUSPENSION 30 ML UDCUP PO PRN (14:30)
[2023-10-30] MEDS ORDERED: MAG HYDROX/ALUMINUM HYD/SIMETH ES 30 ML SUSPENSION UDCUP PO PRN (14:30)
[2023-10-30] MEDS ORDERED: IBUPROFEN 400 MG TABLET PO PRN (14:30)
[2023-10-30] MEDS ORDERED: ONDANSETRON HCL 4 MG TABLET PO PRN (14:30)
[2023-10-30] MEDS ORDERED: GuaiFENesin/D-METHORPHAN [SUGAR-FREE] 200-20MG/10 ML SYRUP UDCUP PO PRN (14:30)
[2023-10-30] MEDS ORDERED: ALBUTEROL SULFATE HFA 90 MCG/PUFF 8 GM INHALER IH PRN (14:30)
[2023-10-30] MEDS: LITHIUM CARBONATE 300 MG CAPSULE PO SCH (18:11)
[2023-10-30] MEDS: RisperiDONE 3 MG TABLET PO SCH (18:11)
[2023-10-30 21:43] VITALS: RESP 18
[2023-10-31] MEDS: PANTOPRAZOLE SODIUM 40 MG DR TABLET PO SCH (08:42)
[2023-10-31] MEDS: AmLODIPine BESYLATE 10 MG TABLET PO SCH (08:42)
[2023-10-31 10:22] VITALS: BP 118/69; PULSE 83; RESP 18; TEMP 98.3; O2SAT 98
[2023-11-01] MEDS ORDERED: HALOPERIDOL LACTATE 5 MG/ML VIAL ONE (01:39)
[2023-11-01] MEDS ORDERED: DiphenhydrAMINE HCL 50 MG/ML VIAL ONE (01:39)
[2023-11-01] MEDS ORDERED: LORazepam 2 MG/ML VIAL ONE (01:39)
[2023-11-01] MEDS: HALOPERIDOL LACTATE 5 MG/ML VIAL IM ONE (01:50)
[2023-11-01] MEDS: LORazepam 2 MG/ML VIAL IM ONE (01:50)
[2023-11-01] MEDS: DiphenhydrAMINE HCL 50 MG/ML VIAL IM ONE (01:51)
[2023-11-01 09:56] LABS: HEMOGLOBIN A1C 5.5 % (3.8-5.6)
[2023-11-01 10:01] LABS: CHOL/HDL RATIO 3.8 (4.2-7.3)
[2023-11-01 10:10] LABS: THYROID STIMULATING HORMONE 1.08 uIU/mL (0.36-3.74)
[2023-11-01 13:27] VITALS: RESP 18
[2023-11-01] MEDS ORDERED: RISP3TAB35 PO (15:50)
[2023-11-01] MEDS ORDERED: LITH300C3 PO (15:50)
== END 2023-11-01 16:20 | disposition home or self-care (01) | DRG 750 ==
LOC: EMS 15:37 → 3EI 10-30 08:48
PROVIDERS: ADMIT Psychiatry & Neurology Psychiatry; ATTEND Psychiatry & Neurology Psychiatry
DX: F25.1 Schizoaffective disorder, depressive type (principal); R45.851 Suicidal ideations; I10 Essential (primary) hypertension; K21.9 Gastro-esophageal reflux disease without esophagitis; F12.90 Cannabis use, unspecified, uncomplicated; Z87.891 Personal history of nicotine dependence; Z85.038 Personal history of other malignant neoplasm of large intestine; Z20.822 Contact with and (suspected) exposure to COVID-19
CPT/HCPCS: 80048; 80061; 80178; 83036; 84443; 85025; 87081; 99285; G0480; J1200; J1630; J2060